=== PATIENT | female | born 2000 | race African-American/Black ===

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

== ENCOUNTER 2020-09-18 15:22 | Emergency (ER) | payer OTHER ==
[2020-09-18 15:45] VITALS: BP 121/67; PULSE 80; TEMP 99.3; BMI 29.7
[2020-09-18] MEDS ORDERED: IBUPROFEN 600 MG TABLET (FP) PO ONE (16:41)
[2020-09-18] MEDS ORDERED: METHOCARBAMOL 500 MG TABLET ONE (16:41)
== END 2020-09-18 17:21 | disposition home or self-care (01) ==
LOC: JERFT 15:22
DX: M54.5 Low back pain (principal)
CPT/HCPCS: 99283-25

== ENCOUNTER 2023-01-24 01:52 | Emergency (ER) | payer OTHER ==
[2023-01-24 02:13] VITALS: TEMP 98.5; BMI 24.7
[2023-01-24] MEDS ORDERED: ACETAMINOPHEN 1000 MG/100 ML BAG IVPB ONE (02:37)
[2023-01-24] MEDS ORDERED: ACETAMINOPHEN INJECTION 100 ML IVPB ONE (02:43)
[2023-01-24 02:51] LABS: BASO % 0.8 % (0-2.0); EOS % 0.9 % (0-4.5); HEMATOCRIT 35.7 % (32.4-45.2); HEMOGLOBIN 11.7 GM/dL (10.7-15.3); MCH 23.6 pg (25.7-33.7); MCHC 32.8 g/dl (32.0-36.0); MEAN PLT VOLUME 7.6 fl (7.5-11.1); MONO % 8.2 % (3.8-10.2); NEUT % 71.1 % (42.8-82.8); PLATELET COUNT 351 10^3/uL (134-434); RBC 4.96 M/mm3 (3.60-5.2); RDW 16.1 % (11.6-15.6); WHITE BLOOD COUNT 5.8 K/mm3 (4.0-10.0)
[2023-01-24 03:10] LABS: POTASSIUM 4.4 mmol/L (3.5-5.1)
[2023-01-24 03:12] LABS: CALCIUM 9.3 mg/dL (8.5-10.1)
[2023-01-24 03:13] LABS: ALBUMIN 3.9 g/dl (3.4-5.0); BLOOD UREA NITROGEN 10.7 mg/dL (7-18)
[2023-01-24 03:16] LABS: CREATININE 0.8 mg/dL (0.55-1.3)
[2023-01-24 03:17] LABS: BILIRUBIN,TOTAL 0.2 mg/dL (0.2-1); TOT PROT 7.8 g/dl (6.4-8.2)
[2023-01-24 05:34] VITALS: BP 112/82; PULSE 84; RESP 20
== END 2023-01-24 05:33 | disposition home or self-care (01) ==
LOC: JER 01:52
PROC: 3E033NZ Introduction of Analgesics, Hypnotics, Sedatives into Peripheral Vein, Percutaneous Approach (ICD-10-PCS; principal; 2023-01-24)
DX: R07.9 Chest pain, unspecified (principal)
CPT/HCPCS: 36415; 71046-TC-FY; 71275-TC; 80053; 84484; 84703; 85025; 85379; 93005; 93010; 99285-25; Q9967

== ENCOUNTER 2023-05-01 08:26 | Emergency (ER) | payer SELFPAY ==
[2023-05-01 08:51] VITALS: BP 111/74; PULSE 74; RESP 18; TEMP 98.9; BMI 25.3
[2023-05-01] MEDS ORDERED: CLINDAMYCIN HCL 150 MG CAPSULE (FP) ONE (08:51)
[2023-05-01] MEDS ORDERED: LIDOCAINE 5% TOPICAL PATCH ONE (08:51)
[2023-05-01] MEDS ORDERED: METHOCARBAMOL 500 MG TABLET ONE (08:51)
[2023-05-01] MEDS: LIDOCAINE 5% TOPICAL PATCH TP ONE (08:55)
[2023-05-01] MEDS: CLINDAMYCIN HCL 300 MG CAPSULE PO ONE (08:55)
[2023-05-01] MEDS: METHOCARBAMOL 500 MG TABLET PO ONE (08:55)
[2023-05-01] MEDS ORDERED: LIDOCAINE PATCH REMOVAL MC ONE (22:00)
== END 2023-05-01 08:59 | disposition home or self-care (01) ==
LOC: FER 08:26
DX: M54.2 Cervicalgia (principal); M79.641 Pain in right hand; M79.642 Pain in left hand; R51.9 Headache, unspecified; S16.1XXA Strain of muscle, fascia and tendon at neck level, initial encounter; W50.3XXA Accidental bite by another person, initial encounter; W22.8XXA Striking against or struck by other objects, initial encounter
CPT/HCPCS: 99283-25

== ENCOUNTER 2023-10-17 03:47 | Emergency (ER) | payer SELFPAY ==
[2023-10-17 03:52] VITALS: RESP 18; BMI 24.4
[2023-10-17] MEDS ORDERED: AZITHROMYCIN 500 MG TABLET ONE (05:39)
[2023-10-17] MEDS ORDERED: LIDOCAINE HCL 1%, 10 MG/ML (20ML VIAL) ONE (05:39)
[2023-10-17] MEDS: AZITHROMYCIN 500 MG TABLET PO ONE (06:03)
[2023-10-17 08:17] LABS: EPITHELIAL CELLS 0-5 /hpf
[2023-10-17 08:32] VITALS: BP 120/80; PULSE 114; TEMP 98.4
== END 2023-10-17 08:54 | disposition home or self-care (01) ==
LOC: FER 03:47
DX: R10.32 Left lower quadrant pain (principal); A64 Unspecified sexually transmitted disease; R10.2 Pelvic and perineal pain; N83.202 Unspecified ovarian cyst, left side
CPT/HCPCS: 36415; 76830-TC; 81003; 81015; 81025; 87086; 87186; 87491; 87591; 99284-25